=== PATIENT | female | born 1995 | race Two or more races ===

== ENCOUNTER 2024-07-24 10:25 | Emergency (ER) | payer OTHER ==
[~2024-07-24] VITALS: Ht 172.7 cm; Wt 64.4 kg
[2024-07-24] MEDS ORDERED: SINGULAIR10 MG (11:11)
[2024-07-24] MEDS ORDERED: SYMBICORT 16010.2 GM (11:12)
[2024-07-24] MEDS ORDERED: METHYLPREDNISOLONE SOD SUCC 125 MG VIAL IV ONE (14:00)
[2024-07-24] MEDS ORDERED: METHYLPREDNISOLONE SOD SUCC 125 MG VIAL ONE (14:00)
[2024-07-24] MEDS ORDERED: IPRATROPIUM/ALBUTEROL SULFATE 3 ML AMPUL.NEB IH SCH (14:00)
[2024-07-24] MEDS ORDERED: IPRATROPIUM/ALBUTEROL SULFATE 3 ML AMPUL.NEB IH ONE (14:01)
[2024-07-24] MEDS ORDERED: BENZONATATE 100 MG CAPSULE PO ONE (14:15)
[2024-07-24 14:43] LABS: BASO % 0.9 % (0.1-1.2); EOS # 0.24 (0.04-0.54); EOS % 4.3 % (0.7-7.0); HEMATOCRIT 34.9 % (34.1-44.9); HEMOGLOBIN 11.4 g/dL (11.2-15.7); LYMPH # 1.79 (1.18-3.74); LYMPH % 32.1 % (19.3-53.1); MEAN CORPUSCULAR HEMOGLOBIN 27.2 pg (25.6-32.2); MONO # 0.38 (0.24-0.82); MONO % 6.8 % (4.7-12.5); NEUT % 55.7 % (34.0-71.1); PLATELET COUNT 252 K/uL (163-369); RED BLOOD COUNT 4.19 M/uL (3.93-5.22); RED CELL DISTRIBUTION WIDTH 12.9 % (11.6-14.4)
[2024-07-24 15:17] LABS: COVID-19 AG NEGATIVE (NEGATIVE); INFLUENZA A AG NEGATIVE (NEGATIVE)
[2024-07-24] MEDS ORDERED: IPRATROPIU0.2 MG/1 M IH (16:11)
[2024-07-24] MEDS ORDERED: ALBUTEROL0.63 MG/3 IH (16:11)
== END 2024-07-24 16:27 | disposition home or self-care (01) ==
LOC: ER 11:27
PROVIDERS: Preventive Medicine Public Health & General Preventive Medicine
DX: J45.901 Unspecified asthma with (acute) exacerbation (principal); Z91.012 Allergy to eggs; Z91.013 Allergy to seafood; Z20.822 Contact with and (suspected) exposure to COVID-19